=== PATIENT | female | born 1990 | race Caucasian/White ===

== ENCOUNTER 2024-06-01 17:01 | Emergency (ER) | payer OTHER ==
[~2024-06-01] VITALS: Ht 157.5 cm; Wt 69.9 kg
[2024-06-01] MEDS ORDERED: INFANRIX VACCINE SYRINGE (DIPHTH/TET/ACEL PERTUS PEDIATRIC) IM ONE (21:20)
[2024-06-01] MEDS ORDERED: CEPH500C PO (21:50)
[2024-06-01] MEDS: BOOSTRIX VACCINE (TETANUS/DIPHTH/ACEL. PERTUSSIS) 0.5ML SYR IM ONE (21:53)
[2024-06-01] MEDS: CEPHALEXIN 500 MG CAP PO ONE (22:22)
[2024-06-01] MEDS: ACETAMINOPHEN 500 MG TAB PO ONE (22:25)
[2024-06-01 22:26] VITALS: BP 127/57; TEMP 97.3; O2SAT 100
== END 2024-06-01 22:29 | disposition home or self-care (01) ==
LOC: EDBD 17:01 → M ED 17:01
DX: S61.441A Puncture wound with foreign body of right hand, initial encounter (principal); W01.0XXA Fall on same level from slipping, tripping and stumbling without subsequent striking against object, initial encounter; Y92.010 Kitchen of single-family (private) house as the place of occurrence of the external cause; Y93.89 Activity, other specified; Y99.9 Unspecified external cause status; Z23 Encounter for immunization; Z79.2 Long term (current) use of antibiotics